=== PATIENT | female | born 1950 | race Caucasian/White ===

== ENCOUNTER 2022-03-21 13:28 | Emergency (ER) | payer MEDICARE ==
[~2022-03-21] VITALS: Ht 149.9 cm; Wt 86.0 kg
[2022-03-21 14:13] VITALS: BP 171/79
[2022-03-21] MEDS ORDERED: PANTOPRAZOLE 40 MG TABEC PO ONE (16:30)
[2022-03-21 16:53] LABS: BASOPHILS # (AUTO) 0.1 K/uL (0.00-0.22); EOSINOPHILS # (AUTO) 0.2 K/uL (0-0.4); EOSINOPHILS % (AUTO) 3.5 % (0.0-4.0); HEMATOCRIT 34.3 % (36-48); HEMOGLOBIN 11.3 g/dL (12.0-16.0); LYMPHOCYTES # (AUTO) 2.4 K/uL (2.5-16.5); LYMPHOCYTES % (AUTO) 39.1 % (20.5-51.1); MEAN CORPUSCULAR HEMOGLOBIN 29 pg (27-31); MEAN CORPUSCULAR HGB CONC 33 g/dL (33-37); MEAN CORPUSCULAR VOLUME 88.5 fL (80-94); MONOCYTES # (AUTO) 0.4 K/uL (0.8-1.0); MONOCYTES % (AUTO) 6.6 % (1.7-9.3); NEUTROPHILS # (AUTO) 3.1 K/uL (1.8-7.7); NEUTROPHILS % (AUTO) 49.8 % (42.2-75.2); PLATELET COUNT (AUTO) 67 K/uL (140-450); RED BLOOD CELL COUNT(AUTO) 3.88 MIL/uL (4.20-5.40); RED CELL DISTRIBUTION WIDTH 13.9 % (11.6-13.7); WHITE BLOOD COUNT (AUTO) 6.2 K/uL (4.8-10.8)
--- NOTE | 2022-03-21 16:55 | NUR ---
Assumed care of pt at this time
[2022-03-21 17:10] LABS: ALBUMIN 3.3 g/dL (3.4-5.0); ANION GAP 11.9 (8-16); ASPARTATE AMINOTRANSFERASE 364 U/L (15-37); CARBON DIOXIDE 24.2 mmol/L (21-32); CHLORIDE 108 mmol/L (98-107); CREATININE 1.1 mg/dL (0.6-1.3); GLUCOSE 102 mg/dL (74-106); LIPASE 66 U/L (73-393); POTASSIUM 4.1 mmol/L (3.5-5.1); SODIUM SERUM 140 mmol/L (136-145); TOTAL BILIRUBIN 1.1 mg/dL (0.0-1.0); UREA NITROGEN, BLOOD 25 mg/dL (7-18)
[2022-03-21] MEDS ORDERED: OMEP40EC23 PO (18:36)
[2022-03-21 18:49] VITALS: BP 171/79
--- NOTE | 2022-03-21 18:50 | NUR ---
Note altafsasha in EDM - 03/21/22 at 1902 by [facility] 69 y/o female bib self from home, presents to er with c.o new onset of epigastric pain/burning sensation when eating. pt states pain is 10/10 that has been going on for 2 days. denies n/v/d, dysuria, hematuria, cough, sob, fever, chills. pmh: denies nka med: denies
--- NOTE | 2022-03-21 18:50 | NUR ---
69 y/o female bib self from home, presents to er with c.o new onset of epigastric pain/burning sensation when eating. pt states pain is 10/10 that has been going on for 2 days. denies n/v/d, dysuria, hematuria, cough, sob, fever, chills. pmh: denies allergy: penicillin med: denies
--- NOTE | 2022-03-21 18:54 | NUR ---
Patient discharged with v/s stable. Written and verbal after care instructions given and explained. Patient alert, oriented and verbalized understanding of instructions. Ambulatory with steady gait. All questions addressed prior to discharge. ID band removed. Patient advised to follow up with PMD. Rx of omeprazole (sent) given. Patient educated on indication of medication including possible reaction and side effects. Opportunity to ask questions provided and answered.
== END 2022-03-21 18:54 | disposition home or self-care (01) ==
LOC: MED 13:28
DX: R10.13 Epigastric pain (principal); Z79.899 Other long term (current) drug therapy; Z88.0 Allergy status to penicillin
CPT/HCPCS: 36415; 80053; 83690; 85025; 99284